=== PATIENT | male | born 1995 | race Caucasian/White ===

== ENCOUNTER 2022-12-08 21:12 | Emergency (ER) | payer OTHER ==
[2022-12-08 21:19] VITALS: BP 121/80; PULSE 83; RESP 17; TEMP 98; BMI 29.0
[2022-12-09] MEDS ORDERED: KETOROLAC TROMETHAMINE 15 MG/ML VIAL IVPUSH ONE (03:14)
[2022-12-09] MEDS ORDERED: ACETAMINOPHEN 500 MG TABLET (FP) PO ONE (03:14)
[2022-12-09] MEDS ORDERED: KETOROLAC TROMETHAMINE 15 MG/ML VIAL ONE (03:19)
[2022-12-09] MEDS ORDERED: ACETAMINOPHEN 325 MG TABLET (FP) ONE (03:19)
== END 2022-12-09 03:57 | disposition home or self-care (01) ==
LOC: JER 21:12 → JERFT 21:12 → JER 12-09 03:57
PROC: 3E033GC Introduction of Other Therapeutic Substance into Peripheral Vein, Percutaneous Approach (ICD-10-PCS; principal; 2022-12-08)
DX: M54.89 Other dorsalgia (principal); G89.18 Other acute postprocedural pain
CPT/HCPCS: 99284-25